=== PATIENT | male | born 1985 | race Caucasian/White ===

== ENCOUNTER 2022-10-26 20:38 | Emergency (ER) | payer BC ==
--- OUTSIDE RECORDS SUMMARY | 2022-10-26 20:41 | XMS REPORT | Continuity of Care Document ---
:1985 Author Organization [facility] t Address [address] [place] [address]. [address] [place] [address] Care Team Providers Name Role Phone Dar Hui DO Valerio Primary Care Physician [phone] Dar Hui Attending Clinician Unavailable Tahmina Wynne PA-C Attending Clinician Unknown, Attending Attending Clinician Unavailable TAHMINA WYNNE Attending Clinician Unavailable Doctor Unassigned, [place] Attending Clinician Unavailable Liliana Lemus Attending Clinician LILIANA BISHOP Attending Clinician Unavailable BARBARA GRAMAJO Attending Clinician Unavailable ROSALINDA NG Attending Clinician Unavailable Curry Javier Attending Clinician CURRY SAINZ Attending Clinician Unavailable VARUN KING Attending Clinician Unavailable Payers Payer Name Policy Type Policy Number Effective Date Expiration Date Zander [employer] ADVANTAGE [id number] [facility] - BCBS CHOICE/CHOICE [id number] 2017 PLUS/OPTIONS 00:00:00 [facility] Blue Cross Blue 6 [id number] 2021 [facility] Shield HMO 00:00:00 - [facility] Blue Cross Blue C1 [id number] [facility] Shield O [facility] Blue Cross Blue C1 [id number] [facility] Shield O [facility] Blue Cross Blue C1 [id number] [facility] Shield O [facility] Blue Cross Blue C1 [id number] [facility] Shield O [facility] Blue Cross Blue C1 [id number] [facility] Shield [facility] Problems Condition Condition Condition Status Onset Resolution Last Treating Co mments Source Name Details Category Date Date Treatment Clinician Date No known No known Disease Unive rs active active ity of problems problems [facility] [id number] RASHID Problem Common (generaliz Spirit ed anxiety - CHI disorder) [facility] [id number] MVP Problem Common (mitral Spirit valve - CHI prolapse) [facility] [id number] Primary Problem Common insomnia [facility] [id number] Mixed Problem Common hyperlipid Spirit emia [facility] Allergies, Adverse Reactions, Alerts Allergy Allergy Status Severity Reaction(s) Onset Inactive Treating Comm ents Source Name Type Date Date Clinician Trazodon Propensi Active Palpitations Univers e ty to 05-26 ity of adverse 00:00: [place] reaction 00 Medical s Branch TRAZODON DRUG Active Palpitations Un ga E INGREDI 05-26 ity of 00:00: [place] 00 Medical Branch Trazodon Propensi Active Palpitations Dajuan e ty to 05-26 College adverse 00:00: of reaction 00 Medicin s to e drug trazodon trazodon Active Tachy Common e e Spirit - [facility] NO KNOWN Drug Active Univers ALLERGIE Class ity of S [facility] Social History Social Habit Start Date Stop Date Quantity Comments Source History of [facility] - Tobacco Use [facility] Sex Assigned At Common Sp yomi - [facility] Exposure to 2022-06-14 2022-06-24 Not sure University of SARS-CoV-2 00:00:00 17:09:00 [facility] (event) Branch Alcohol intake 2022-06-06 2022-06-06 Lifetime [facility] Col lege of 00:00:00 00:00:00 non-drinker Medicine (finding) Tobacco use and 2021-05-26 2021-05-26 Smokeless tobacco Un iversity of exposure 00:00:00 00:00:00 non-user [facility] Smoking Status Start Date Stop Date Source Never smoked tobacco [facility] Rylee ege of Medicine Medications Ordered Filled Start Stop Current Ordering Indication Dosage Frequency Signature Comments Components Source Medication Medication Date Date Medication? Clinician (SIG) Name Name fluticasone 2022- No [id number] 1{spray Use 1 Univers propionate 06-24 } [place] in ity of 50 00:00: 05:59 each [place] mcg/actuati 00 :00 nostril in Ma dical on nasal the Branch spray morning for 7 days. predniSONE 2022- No [id number] 20mg Take 1 Univers 20 mg 06-24 tablet by ity of tablet 00:00: 05:59 mouth in [place] 00 :00 the Medical morning Branch for 5 days. tretinoin 2021-05 Yes [id number] Apply a B aylor (RETIN-A) 06-16 [facility] 0.025 % 00:00: amount of cream 00 topically Medicin to face e every night clindamycin 2021-05 Yes [id number] Apply to [facility] (CLEOCIN T) 06-16 affected Rylee ege 1 % lotion 00:00: area twice o f 00 a day as Medicin needed on e pustules tretinoin 2021-05 Yes [id number] Apply a B [place] (RETIN-A) 06-16 [facility] 0.025 % 00:00: amount of cream 00 topically Medicin to face e every night clindamycin 2021-05 Yes [id number] Apply to [facility] (CLEOCIN T) 06-16 affected Rylee ege 1 % lotion 00:00: area twice o f 00 a day as Medicin needed on e pustules METOPROLOL Yes 25mg Take 25 mg U nivers SUCCINATE 5-01 by mouth. ity o f ORAL 19:53: [address] METOPROLOL Yes 25mg Take 25 mg U nivers SUCCINATE 5-01 by mouth. ity o f ORAL 19:53: [place] [facility] METOPROLOL Yes 25mg Take 25 mg U nivers SUCCINATE 5-01 by mouth. ity o f ORAL 19:53: [address] METOPROLOL Yes 25mg Take 25 mg U nivers SUCCINATE 5-01 by mouth. ity o f ORAL 19:53: [address] hydrocortis Yes [id number] Apply to Univers one 2.5 % 5-01 area(s) 2 ity o f cream 00:00: (two) [place] 00 times Medical daily. Branch hydrocortis Yes [id number] Apply to Univers one 2.5 % 5-01 area(s) 2 ity o f cream 00:00: (two) [place] 00 times Medical daily. Branch hydrocortis Yes [id number] Apply to Univers one 2.5 % 5-01 area(s) 2 ity o f cream 00:00: (two) [place] 00 times Medical daily. Branch hydrocortis 0 Yes [id number] Apply to Univers one 2.5 % 5-01 area(s) 2 ity o f cream 00:00: (two) [place] 00 times Medical daily. Branch cephALEXin 2021- No [id number] 500mg Take 1 Univers (KEFLEX) 5 05-09 capsule by ity of 500 mg 00:00: 04:59 mouth 4 [place] capsule 00 :00 (four) Medical times Branch daily for 7 days. No known No Univers medications - ity of 14:43: [place] 28 Medical Branch No known 2020-05 No No known [facility] medications - medication Co llege 13:02: s of 17 Medicin e Mirtazapine Mirtazapine 2020-05 No QD Mirtazapin 15 MG 15 MG 1-16 e 15 MG 00:00: 00 Ramelteon 8 Ramelteon 8 No 1{table QD Ramelteon MG MG 9-13 t_at_be 8 MG 00:00: dtime_a 00 s_neede d} Ramelteon 8 Ramelteon 8 No 1{table QD Ramelteon MG MG 9-13 t_at_be 8 MG 00:00: dtime_a 00 s_neede d} metoprolol Yes [facility] (LOPRESSOR) - College 25 MG 00:00: of tablet 00 Medicin e Metoprolol Metoprolol No 1{table Metoprolol Tartrate 25 Tartrate 25 t_with_ Tartrate MG MG food} 25 MG Metoprolol Metoprolol No 1{table Metoprolol Tartrate 25 Tartrate 25 t_with_ Tartrate MG MG food} 25 MG Ramelteon 8 Ramelteon 8 No 1{table QD Ramelteon MG MG t_at_be 8 MG dtime_a s_neede d} Metoprolol Metoprolol No 1{table Metoprolol Tartrate 25 Tartrate 25 t_with_ Tartrate MG MG food} 25 MG Ramelteon 8 Ramelteon 8 No 1{table QD Ramelteon MG MG t_at_be 8 MG dtime_a s_neede d} Metoprolol Metoprolol No 1{table Metoprolol Tartrate 25 Tartrate 25 t_with_ Tartrate MG MG food} 25 MG Metoprolol Metoprolol No 1{table Metoprolol Tartrate 25 Tartrate 25 t_with_ Tartrate MG MG food} 25 MG Metoprolol Metoprolol No 1{table Metoprolol Tartrate 25 Tartrate 25 t_with_ Tartrate MG MG food} 25 MG Ramelteon 8 Ramelteon 8 No 1{table QD Ramelteon MG MG t_at_be 8 MG dtime_a s_neede d} Metoprolol Metoprolol No 1{table Metoprolol Tartrate 25 Tartrate 25 t_with_ Tartrate MG MG food} 25 MG Ramelteon 8 Ramelteon 8 No 1{table QD Ramelteon MG MG t_at_be 8 MG dtime_a s_neede d} Ramelteon 8 Ramelteon 8 No 1{table QD Ramelteon MG MG t_at_be 8 MG dtime_a s_neede d} Metoprolol Metoprolol No 1{table Metoprolol Tartrate 25 Tartrate 25 t_with_ Tartrate MG MG food} 25 MG Metoprolol Metoprolol No 1{table Tartrate 25 Tartrate 25 t_with_ MG MG food} Metoprolol Metoprolol No 1{table Metoprolol Tartrate 25 Tartrate 25 t_with_ Tartrate MG MG food} 25 MG Immunizations Ordered Immunization Filled Immunization Date Status Commen ts Source Name Name Adacel (Tdap) Adacel (Tdap) 2013-05-25 Completed Common S pirit 10:23:00 - [facility] Adacel (Tdap) Adacel (Tdap) 2013-05-25 Completed Common S pirit 10:23:00 - [facility] Adacel (Tdap) Adacel (Tdap) 2013-05-25 Completed Common S pirit 10:23:00 - [facility] Adacel (Tdap) Adacel (Tdap) 2013-05-25 Completed Common S pirit 10:23:00 - [facility] Adacel (Tdap) Adacel (Tdap) 2013-05-25 Completed Common S pirit 10:23:00 - [facility] Adacel (Tdap) Adacel (Tdap) 2013-05-25 Completed Common S pirit 10:23:00 - [facility] Adacel (Tdap) Adacel (Tdap) 2013-05-25 Completed Common S pirit 10:23:00 - [facility] Adacel (Tdap) Adacel (Tdap) 2013-05-25 Completed Common S pirit 10:23:00 - [facility] Adacel (Tdap) Adacel (Tdap) 2013-05-25 Completed Common S pirit 10:23:00 - [facility] Adacel (Tdap) Adacel (Tdap) 2013-05-25 Completed Common S pirit 10:23:00 - [facility] Vital Signs Vital Name Observation Time Observation Value Comments Source Systolic blood 2022-10-25 22:04:00 119 mm[Hg] [facility] [place] [facility] Diastolic blood 2022-10-25 22:04:00 72 mm[Hg] Unive rsity of pressure [place] [facility] Heart rate 2022-10-25 22:04:00 90 /min Universi ty of [place] [facility] Body temperature 2022-10-25 22:04:00 36.72 Ruth Univ ersity of [place] [facility] Respiratory rate 2022-10-25 22:04:00 16 /min Univ ersity of [place] [facility] Body height 2022-10-25 22:04:00 188 cm Universi ty [facility] [place] [facility] Body weight 2022-10-25 22:04:00 73.256 kg [facility]i ty [facility] [place] [facility] BMI 2022-10-25 22:04:00 20.74 kg/m2 Universi ty [facility] [place] [facility] Oxygen saturation in 2022-10-25 22:04:00 97 /min University of Arterial blood by [facility] Pulse oximetry Branch Systolic blood 2022-06-24 23:16:00 128 mm[Hg] Univer sity of pressure [place] [facility] Diastolic blood 2022-06-24 23:16:00 77 mm[Hg] Unive rsity of pressure [place] [facility] Heart rate 2022-06-24 23:16:00 86 /min Universi ty [facility] [place] [facility] Body temperature 2022-06-24 23:16:00 36.89 Ruth Univ ersity [facility] [place] [facility] Respiratory rate 2022-06-24 23:16:00 16 /min Univ ersity [facility] [place] [facility] Body weight 2022-06-24 23:16:00 72.122 kg Universi ty [facility] [place] [facility] BMI 2022-06-24 23:16:00 20.41 kg/m2 Universi ty [facility] [place] [facility] Oxygen saturation in 2022-06-24 23:16:00 96 /min University of Arterial blood by [facility] Pulse oximetry Branch Systolic blood 2022-06-06 19:04:00 125 mm[Hg] [facility] pressure Medicine Diastolic blood 2022-06-06 19:04:00 72 mm[Hg] [facility] Medicine Heart rate 2022-06-06 19:04:00 77 /min [facility] Body temperature 2022-06-06 19:04:00 36.39 Ruth [facility] Body height 2022-06-06 19:04:00 188 cm Dajuan C ollege of Medicine Body weight 2022-06-06 19:04:00 70.308 kg [facility] C ollege of Medicine BMI 2022-06-06 19:04:00 19.90 kg/m2 [facility] C ollege of Medicine height 2022-05-08 11:30:00 74 [in_i] [facility] weight 2022-05-08 11:30:00 158 [lb_av] Common [facility] bmi 2022-05-08 11:30:00 20.28 kg/m2 [facility] Body height 2022-04-16 19:16:00 188 cm [facility] C ollege of Medicine Body weight 2022-04-16 19:16:00 70.308 kg [facility] ollege of Medicine BMI 2022-04-16 19:16:00 19.90 kg/m2 [facility] ollege of Medicine height 2022-04-11 10:30:00 74 [in_i] [facility] weight 2022-04-11 10:30:00 158.8 [lb_av] [facility] temperature 2022-04-11 10:30:00 97.5 [degF] [facility] bmi 2022-04-11 10:30:00 20.39 kg/m2 [facility] oximetry 2022-04-11 10:30:00 97 % [facility] respiratory rate 2022-04-11 10:30:00 17 /min Comm on [facility] blood pressure 2022-04-11 10:30:00 130 mm[Hg] Common [facility] - systolic [facility] blood pressure 2022-04-11 10:30:00 53 mm[Hg] Common [facility] - diastolic [facility] Systolic blood 2021-09-24 00:53:00 140 mm[Hg] Univer sity of pressure [facility] Diastolic blood 2021-09-24 00:53:00 80 mm[Hg] Unive rsity of pressure [facility] Heart rate 2021-09-24 00:53:00 90 /min Universi ty [facility] Body temperature 2021-09-24 00:53:00 37 Ruth [facility] [place] [facility] Res[facility] rate 2021-09-24 00:53:00 18 /min [facility] Body height 2021-09-24 00:53:00 188 cm Universi ty [facility] Body weight 2021-09-24 00:53:00 72.122 kg Universi ty [facility] BMI 2021-09-24 00:53:00 20.41 kg/m2 Universi [facility] Oxygen saturation in 2021-09-24 00:53:00 100 /min [facility] blood by [facility] Pulse oximetry Branch height 2021-06-26 15:20:00 74 [in_i] [facility] weight 2021-06-26 15:20:00 159.3 [lb_av] Common [facility] temperature 2021-06-26 15:20:00 98.4 [degF] Common [facility] bmi 2021-06-26 15:20:00 20.45 kg/m2 [facility] oximetry 2021-06-26 15:20:00 100 % [facility] respiratory rate 2021-06-26 15:20:00 17 /min Comm on [facility] blood pressure 2021-06-26 15:20:00 121 mm[Hg] Common [facility] - systolic [facility] blood pressure 2021-06-26 15:20:00 70 mm[Hg] Common [facility] - diastolic [facility] Systolic blood 2021-04-16 19:01:00 118 mm[Hg] [facility] Medicine Diastolic blood 2021-04-16 19:01:00 68 mm[Hg] [facility] Medicine Heart rate 2021-04-16 19:01:00 73 /min [facility] Body height 2021-04-16 19:01:00 188 cm [facility] Body weight 2021-04-16 19:01:00 70.308 kg [facility] BMI 2021-04-16 19:01:00 19.90 kg/m2 [facility] height 2021-04-10 10:40:00 74 [in_i] Common [facility] weight 2021-04-10 10:40:00 158.1 [lb_av] [facility] temperature 2021-04-10 10:40:00 97.6 [degF] Common [facility] bmi 2021-04-10 10:40:00 20.3 kg/m2 Common [facility] oximetry 2021-04-10 10:40:00 99 % Common [facility] respiratory rate 2021-04-10 10:40:00 16 /min Comm on [facility] blood pressure 2021-04-10 10:40:00 120 mm[Hg] Common [facility] - systolic [facility] blood pressure 2021-04-10 10:40:00 74 mm[Hg] Common [facility] - diastolic [facility] height 2021-03-09 10:50:00 74 [in_i] Common [facility] weight 2021-03-09 10:50:00 157.3 [lb_av] [facility] temperature 2021-03-09 10:50:00 98.2 [degF] Common [facility] bmi 2021-03-09 10:50:00 20.19 kg/m2 Common S [facility] oximetry 2021-03-09 10:50:00 98 % Common [facility] respiratory rate 2021-03-09 10:50:00 16 /min Comm on [facility] blood pressure 2021-03-09 10:50:00 120 mm[Hg] Common [facility] - systolic [facility] blood pressure 2021-03-09 10:50:00 73 mm[Hg] Common [facility] - diastolic [facility] height 2021-02-05 10:20:00 74 [in_i] [facility] weight 2021-02-05 10:20:00 157.8 [lb_av] [facility] temperature 2021-02-05 10:20:00 97.6 [degF] [facility] bmi 2021-02-05 10:20:00 20.26 kg/m2 [facility] oximetry 2021-02-05 10:20:00 99 % [facility] respiratory rate 2021-02-05 10:20:00 17 /min Comm on [facility] blood pressure 2021-02-05 10:20:00 129 mm[Hg] [facility] [place] [facility] blood pressure 2021-02-05 10:20:00 76 mm[Hg] [facility] diastolic [facility] Procedures Procedure Date / Time Performed Performing Clinician [facility] e CONSENT/REFUSAL FOR 2022-10-25 21:55:13 Doctor Unassigned, No [facility] DIAGNOSIS AND Name Medical Branch TREATMENT ASSIGNMENT OF BENEFITS 2022-10-25 21:54:58 Doctor Unassigned, No [facility] Name [facility] Branch ASSIGNMENT OF BENEFITS 2021-09-24 00:44:18 Doctor Unassigned, No [facility] Plan of Care Planned Activity Planned Date Details Comments Source Future Scheduled 2022-06-06 TETANUS SHOT (ADULT) [facility] Test 13:06:04 [code = TETANUS SHOT Medicin e (ADULT)] Future Scheduled 2022-06-06 Human immunodeficiency B [facility] Test 13:06:04 virus screening Medicine (procedure) [code = [id number]] Future Scheduled 2022-06-06 Hepatitis C screening Ba [facility] of Test 13:06:04 (procedure) [code = Medicine [id number]] Future Scheduled 2022-06-06 COVID-19 Vaccine (2 - [address] [facility] Test 13:06:04 Booster for Minda Medicine series) [code = COVID-19 Vaccine (2 - Booster for Minda series)] Future Scheduled 2022-04-16 TETANUS SHOT (ADULT) [facility] Test 13:34:12 [code = TETANUS SHOT Medicin e (ADULT)] Future Scheduled 2022-04-16 Hepatitis C screening Ba [facility] of Test 13:34:12 (procedure) [code = Medicine [id number]] Future Scheduled 2022-04-16 Human immunodeficiency B [facility] of Test 13:34:12 virus screening Medicine (procedure) [code = [id number]] Future Scheduled 2022-04-16 COVID-19 Vaccine (2 - Ba [facility] of Test 13:34:12 Booster for Minda Medicine series) [code = COVID-19 Vaccine (2 - Booster for Minda series)] Future Scheduled 2021-04-16 COVID-19 Vaccine (1) [facility] Test 13:02:15 [code = COVID-19 Vaccine Med icine (1)] Future Scheduled 2021-04-16 Hepatitis C screening [facility] of Test 13:02:15 (procedure) [code = Medicine [id number]] Future Scheduled 2021-04-16 Human immunodeficiency B [facility] of Test 13:02:15 virus screening Medicine (procedure) [code = [id number]] Future Scheduled 2021-04-16 TETANUS SHOT (ADULT) [facility] of Test 13:02:15 [code = TETANUS SHOT Medicin e (ADULT)] Encounters Start End Encounter Admission Attending Care Care Encounter Source Date/Time Date/Time Type Type Clinicians Facility Department ID 2022-05-07 Outpatient Hui, [facility] [id number] Common 11:09:01 [facility] 2022-05-06 Outpatient Hiu, [facility] [id number] Common 13:35:02 [facility] 2022-04-09 Outpatient Hui, [facility] [id number] Common 08:38:03 [facility] 2022-01-01 Outpatient Hui, [facility] [id number] Common 13:45:01 Dar [facility] 2021-12-06 Outpatient Hui, [facility] [id number] Common 11:23:01 Dar [facility] 2021-12-04 Outpatient Hui, [facility] [id number] Common 10:49:02 Dar 62549 [facility] 2021-06-20 [facility] [id number] Common 14:16:20 Dar 88843 [facility] 2021-06-20 [facility], [facility] [id number] Common 14:05:49 Dar 68010 [facility] 2021-06-20 [facility], [facility] [id number] Common 14:00:37 Dar 69598 [facility] 2021-06-20 [facility] H[facility], [facility] [id number] Common 13:55:34 Dar 81328 [facility] 2021-06-20 Outpatient Hui, [facility] [id number] Common 13:49:35 Dar 66483 [facility] 2021-06-20 [facility] [id number] Common 13:48:28 72265 [facility] 2022-10-25 2022-10-25 Urgent Tahmina Wynne [facility] [id number] Univers 16:40:00 17:00:00 Care Unknown, Attending [facility] [id number] ity [facility] [id number] Jamey as MICHELLE?BLEA [phone] [address] MEDICAL OFFICE BUILDING 2022-10-25 2022-10-25 Outpatient Martínez WYNNE [facility] [id number] [facility] 16:40:00 16:40:00 TAHMINA ity of [facility] 2022-10-25 2022-10-25 Orders Doctor SAMMIE [id number] Univers 00:00:00 00:00:00 Only Unassigned, SHAMIR [id number] [facility] [id number] Jamey as [id number] [address] 2022-06-24 2022-06-24 Urgent Liliana Bishop [facility] [id number] Univers 17:00:00 17:20:00 Care Unknown, [facility] HEALTH [id number] ity of [place] [id number] Jamey as MICHELLE?BLEA [phone] Ma uriah [address] MEDICAL OFFICE BUILDING 2022-06-24 2022-06-24 Outpatient Martínez BISHOP, [facility] [id number] [facility] 17:00:00 17:00:00 REENU ity [facility] 2022-06-06 2022-06-06 Office DANIEL GRAMAJO [id number] [facility] 12:53:43 14:14:47 Visit BARBARA AMBULATOR [id number] College Y [id number] of [id number] [facility] 300 e 2022-05-08 2022-05-08 OFFICE STLMLC STLMLC [id number] Co mmon 00:00:00 00:00:00 VISIT EST Spir it PT LEVEL 3 [facility] 2022-04-16 2022-04-16 Office NICOLE NG [id number] [facility] 13:13:47 13:36:26 Visit ROSALINDA AMBULATOR [id number] College Y [id number] of [id number] [facility] 300 e 2022-04-11 2022-04-11 PREV VISIT STLMLC STLMLC [id number] Common 00:00:00 00:00:00 EST AGE Spirit 18-39 - [facility] 2022-03-20 2022-03-20 (WEB) STLMLC STLMLC [id number] Co mmon 00:00:00 00:00:00 [facility] 2021-12-05 2021-12-05 (WEB) STLMLC STLMLC [id number] Co mmon 00:00:00 00:00:00 [facility] 2021-09-23 2021-09-23 [facility] [id number] [place] [address] 20:00:00 20:11:12 Care Curry Teresa HEALTH [id number] ity of [place] [id number] Jamey as MICHELLE?BLEA [phone] Ma uriah [address] MEDICAL OFFICE BUILDING 2021-09-23 2021-09-23 Outpatient R ANUSHA [facility] [id number] Univers 20:00:00 20:11:12 CURRY ity o f [facility] 2021-09-23 2021-09-23 Orders Doctor SAMMIE [id number] Univers 00:00:00 00:00:00 Only Unassigned, SHAMIR [id number] ity of [place] [facility] [id number] Jamey as [phone] 54 [address] 2021-06-26 2021-06-26 OFFICE STLML[facility] STLMLC [id number] Co mmon 00:00:00 00:00:00 VISIT EST Spir it PT LEVEL 3 - [facility] 2021-05-26 2021-05-26 [facility] [id number] 14:20:00 14:58:25 VARUN ity [facility] 2021-04-16 2021-04-16 Office DANIEL NG [id number] [place] [address] 12:46:53 14:18:34 Visit ROSALINDA AMBULATOR [id number] College Y [id number] of [id number] [facility] 300 e 2021-04-10 2021-04-10 (WELLNESS) STLMLC STLMLC [id number] Common 00:00:00 00:00:00 Wellness Spiri t Visit - [facility] 2021-03-20 2021-03-20 (WEB) STLMLC STLMLC [id number] Co mmon 00:00:00 00:00:00 Spirit - [facility] 2021-03-09 2021-03-09 OFFICE STLML[facility] STLMLC [id number] Co mmon 00:00:00 00:00:00 VISIT EST Spir it PT LEVEL 3 - [facility] 2021-02-14 2021-02-14 (TEL) STLMLC STLMLC [id number] Co mmon 00:00:00 00:00:00 [facility] 2021-02-05 2021-02-05 OFFICE [facility] [id number] Co mmon 00:00:00 00:00:[address] [facility] PT LEVEL 3 - [facility] Results This patient has no known results.
[2022-10-26 23:20] LABS: Absolute Lymphocytes (CBC) 1.5 K/uL (0.7-4.9); Hematocrit 42.1 % (39.6-49.0); Lymphocytes % 23.3 % (15.3-44.8); MCV 93.2 fL (80-100); MPV 7.7 fL (7.6-11.3); RBC Red Blood Cell Count 4.51 M/uL (4.33-5.43)
[2022-10-26 23:35] LABS: Potassium 4.3 mEq/L (3.5-5.1)
--- NOTE | 2022-10-27 01:36 | EDPHYS ---
Physician Documentation [facility] Name: Missael Queen Age: 37 yrs Sex: Male : 1985 Arrival Date: 10/26/2022 Time: 20:38 Bed 9 Private MD: ED Physician Riaz Salgado Historical: - Allergies: 10/26 20:55 Trazodone; ha1 - Home Meds: 20:55 Mirtazapine Oral [Active]; Metoprolol Tartrate Oral [Active]; ha1 - PMHx: 20:55 Anxiety; mitral valve prolapse; ha1 - PSHx: 20:55 None; ha1 - Immunization history:: Adult Immunizations up to date. - Social history:: Smoking status: Patient denies any tobacco usage or history of. Vital Signs: 20:50 BP 125 / 74; Pulse 70; Resp 18 S; Temp 97.8; Pulse Ox 100% on R/A; Weight 71.21 kg; ha1 Height 6 ft. 2 in. ; Pain 0/10; 10/27 01:03 BP 121 / 84; Pulse 72; Resp 16; Pulse Ox 100% on R/A; kd3 10/26 20:50 Body Mass Index 20.16 (71.21 kg, 187.96 cm) ha1 10/26 20:50 Pain Scale: Adult ha1 MDM: 01:35 Patient medically screened. kdr 10/26 22:41 Order name: CBC with Diff; Complete Time: 23:48 kdr 10/26 22:41 Order name: Chem 7; Complete Time: 23:48 kdr 10/26 22:39 Order name: Extremity Venous Unilateral Ltd kdr Administered Medications: No medications were administered Disposition Summary: 10/27/22 01:35 Discharge Ordered Location: Home kdr Problem: new kdr Symptoms: have improved kdr Condition: Stable kdr Diagnosis - Left leg pain and swelling kdr Followup: kdr - With: Private Physician - When: 2 - 3 days - Reason: If symptoms return, Further diagnostic work-up, Recheck today's complaints, Continuance of care, Re-evaluation by your physician Discharge Instructions: - Discharge Summary Sheet kdr - Musculoskeletal Pain kdr Forms: - Medication Reconciliation Form kdr - Thank You Letter kdr Prescriptions: - Ibuprofen 600 mg Oral Tablet - take 1 tablet by ORAL route every 6 hours As needed take with food; 15 tablet; kdr Refills: 0, Product Selection Permitted Signatures: Dispatcher [employer] Riaz Samson MD MD kdr Ayala, Heidy RN RN ha1
--- NOTE | 2022-10-27 01:36 | ER ---
Nurse's Notes [facility] Name: Missael Queen Age: 37 yrs Sex: Male : 1985 Arrival Date: 10/26/2022 Time: 20:38 Bed 9 Private MD: Diagnosis: Left leg pain and swelling Presentation: 10/26 20:50 Chief complaint: Patient states: I have a swelling on my left leg since four day ago ha1 and it looks that it is getting worse. everything started after working out. Coronavirus screen: Vaccine status: Patient reports receiving the 1st dose of the Covid vaccine. Albino and albino. Ebola Screen: No symptoms or risks identified at this time. Initial Sepsis Screen: Does the patient meet any 2 criteria? No. Patient's initial sepsis screen is negative. Does the patient have a suspected source of infection? No. Patient's initial sepsis screen is negative. Risk Assessment: Do you want to hurt yourself or someone else? Patient reports no desire to harm self or others. Onset of symptoms was October 26, 2022. 20:50 Method Of Arrival: Ambulatory ha1 20:50 Acuity: JAVY 4 ha1 Triage Assessment: 20:55 General: Appears comfortable, Behavior is calm, cooperative. Pain: Denies pain. Neuro: ha1 Level of Consciousness is awake, alert, obeys commands, Oriented to person, place, time, situation. Neuro:. Cardiovascular: Patient's skin is warm and dry. Cardiovascular:. Respiratory: Airway is patent Respiratory effort is even, unlabored, Respiratory pattern is regular, symmetrical. Derm:. Musculoskeletal: Reports swelling of left leg. Historical: - Allergies: 20:55 Trazodone; ha1 - Home Meds: 20:55 Mirtazapine Oral [Active]; Metoprolol Tartrate Oral [Active]; ha1 - PMHx: 20:55 Anxiety; mitral valve prolapse; ha1 - PSHx: 20:55 None; ha1 - Immunization history:: Adult Immunizations up to date. - Social history:: Smoking status: Patient denies any tobacco usage or history of. Screenin/04 01:04 [facility] ED Fall Risk Assessment (Adult) History of falling in the last 3 months, kd3 including since admission No falls in past 3 months (0 pts) Confusion or Disorientation No (0 pts) Intoxicated or Sedated No (0 pts) Impaired Gait No (0 pts) Mobility Assist Device Used No (0 pt) Altered Elimination No (0 pt) Score/Fall Risk Level 0 - 2 = Low Risk Maintained a safe environment. Abuse screen: Denies threats or abuse. Denies injuries from another. Nutritional screening: No deficits noted. Tuberculosis screening: No symptoms or risk factors identified. Assessment: 01:04 General: Appears in no apparent distress. Behavior is calm, cooperative. Neuro: Level kd3 of Consciousness is awake, alert, obeys commands, Oriented to person, place, time, situation. Vital Signs: 10/26 20:50 BP 125 / 74; Pulse 70; Resp 18 S; Temp 97.8; Pulse Ox 100% on R/A; Weight 71.21 kg; ha1 Height 6 ft. 2 in. ; Pain 0/10; 10/27 01:03 BP 121 / 84; Pulse 72; Resp 16; Pulse Ox 100% on R/A; kd3 10/26 20:50 Body Mass Index 20.16 (71.21 kg, 187.96 cm) ha1 10/26 20:50 Pain Scale: Adult ha1 ED Course: 10/26 20:42 Patient arrived in ED. ja2 20:42 Riaz Salgado MD is Attending Physician. kdr 20:55 Triage completed. 1 10/27 01:02 US Extremity Venous Unilateral Ltd In Process Unspecified. [facility] 01:03 Selma Gonzalez, RN is Primary Nurse. kd3 01:04 Arm band placed on right wrist. kd3 01:04 No provider procedures requiring assistance completed. kd3 01:42 Patient has correct armband on for positive identification. kd3 01:42 Patient did not have IV access during this emergency room visit. kd3 Administered Medications: No medications were administered Medication: 01:05 VIS not applicable for this client. kd3 Outcome: 01:35 Discharge ordered by . kdr 01:42 Discharged to home ambulatory, with family. kd3 01:42 Condition: stable 01:42 Discharge instructions given to patient, family, Instructed on discharge instructions, follow up and referral plans. Demonstrated understanding of instructions, follow-up care, medications, Prescriptions given X 1. 01:42 Patient left the ED. kd3 Signatures: Dispatcher [employer] EDAR Riaz Salgado MD MD kdr Alexander, Jessica ja2 Lisa, Selma, RN RN kd3 Sujata Gutierrez RN RN ha1
[2022-10-27 02:17] VITALS: TEMP 97.8; O2SAT 100
[2022-10-27 02:19] VITALS: BP 121/84
--- NOTE | 2022-10-28 15:43 | RAD REPORT ---
EXAM DESCRIPTION: US - Extremity Venous Uni Ltd - 10/27/2022 1:00 am CLINICAL HISTORY: The patient is 37 years old and is Male; SWELLING TECHNIQUE: Real-time duplex ultrasound scan of the left lower extremity veins integrating B-mode two -dimensional vascular structure, Doppler spectral analysis, color flow Doppler imaging and compressio n. COMPARISON: No relevant prior studies available. FINDINGS: DEEP VEINS: Unremarkable. No DVT in the visualized common femoral, femoral, proximal d eep femoral or popliteal veins. The veins demonstrate normal color flow, are normally compressible, with normal phasic flow and/or augmentation response. SUPERFICIAL VEINS: Unremarkable. No thrombus in the visualized great saphenous vein. SOFT TISSUES: No acute findings. No popliteal cyst. IMPRESSION: Normal left lower extremity duplex venous ultrasound. Electronically signed by: Sandra Lopez MD 10/27/2022 1:15 AM CDT Due to temporary technical issues with the PACS/Fluency reporting system, reports are being signed by the in house radiologist without review as a courtesy to ensure prompt reporting. The interpreting r adiologist is fully responsible for the content of the report.
== END 2022-10-27 01:42 | disposition home or self-care (01) ==
LOC: ER 20:38
DX: M79.605 Pain in left leg (principal); R22.42 Localized swelling, mass and lump, left lower limb
CPT/HCPCS: 36415; 80048; 85025; 93971; 99283